=== PATIENT | female | born 1940 | race Caucasian/White ===

== ENCOUNTER → 2017-02-06 | Outpatient (CLI) | payer OTHER, BC ==
[~2017-02-06] MED LIST: ALENDRONATE SOD70 MG PO; CALCIUM 600 +1 EAC1 PO; DULERA 100 MCG/13 GM PO; ETODOLAC 400 M400 MG PO; INDAPAMIDE1.25 MG PO; LEVOTHYROXINE 0.1 MG PO; MIRALAX17 GM PO; OMEPRAZOLE20 M2 PO; OXYBUTYNIN 5 MG5 M2 PO; PROBIOTIC1 EAC1 PO; SENOKOT-S1 TA1 PO; SIMVASTATIN40 MG PO; SINGULAIR 10 MG10 M1 PO; SODIUM CHLORIDE1 G2 PO; SYMBICORT160 MCG/4. INH; TRAMADOL 50 MG50 MG PO; TYLENOL EXTRA500 MG PO; VITAMIN D1000 UNIT PO
== END ==
LOC: HYPER 06:57
DX: S81.801A Unspecified open wound, right lower leg, initial encounter (principal); J45.909 Unspecified asthma, uncomplicated; E78.5 Hyperlipidemia, unspecified; I10 Essential (primary) hypertension; K21.9 Gastro-esophageal reflux disease without esophagitis; B35.1 Tinea unguium; Z85.118 Personal history of other malignant neoplasm of bronchus and lung; Z96.659 Presence of unspecified artificial knee joint; Z87.891 Personal history of nicotine dependence; Z72.89 Other problems related to lifestyle; X58.XXXA Exposure to other specified factors, initial encounter; Y93.89 Activity, other specified; Y92.89 Other specified places as the place of occurrence of the external cause; Y99.8 Other external cause status

== ENCOUNTER → 2017-02-21 | Outpatient (CLI) | payer OTHER, BC | LOC: HYPER 06:41 | DX: S81.811D Laceration without foreign body, right lower leg, subsequent encounter (principal); J45.909 Unspecified asthma, uncomplicated; E78.5 Hyperlipidemia, unspecified; I10 Essential (primary) hypertension; K21.9 Gastro-esophageal reflux disease without esophagitis; Z85.118 Personal history of other malignant neoplasm of bronchus and lung; Z87.891 Personal history of nicotine dependence; Z72.89 Other problems related to lifestyle; Z96.659 Presence of unspecified artificial knee joint; X58.XXXD Exposure to other specified factors, subsequent encounter ==

== ENCOUNTER → 2017-03-07 | Outpatient (CLI) | payer OTHER, BC | LOC: HYPER 06:37 | DX: S81.811D Laceration without foreign body, right lower leg, subsequent encounter (principal); L84 Corns and callosities; I10 Essential (primary) hypertension; E78.5 Hyperlipidemia, unspecified; K21.9 Gastro-esophageal reflux disease without esophagitis; J45.909 Unspecified asthma, uncomplicated; Z85.118 Personal history of other malignant neoplasm of bronchus and lung; Z87.891 Personal history of nicotine dependence; Z72.89 Other problems related to lifestyle; X58.XXXD Exposure to other specified factors, subsequent encounter ==

== ENCOUNTER → 2017-03-28 | Outpatient (CLI) | payer OTHER, BC | LOC: HYPER 06:45 | DX: S81.801D Unspecified open wound, right lower leg, subsequent encounter (principal); J45.909 Unspecified asthma, uncomplicated; E78.5 Hyperlipidemia, unspecified; I10 Essential (primary) hypertension; K21.9 Gastro-esophageal reflux disease without esophagitis; B35.1 Tinea unguium; Z85.118 Personal history of other malignant neoplasm of bronchus and lung; Z96.659 Presence of unspecified artificial knee joint; Z87.891 Personal history of nicotine dependence; Z72.89 Other problems related to lifestyle; X58.XXXD Exposure to other specified factors, subsequent encounter ==

== ENCOUNTER → 2020-11-25 | Outpatient (CLI) | payer OTHER, BC | LOC: HYPER 07:32 | PROVIDERS: ATTEND Emergency Medicine Emergency Medical Services | DX: S41.112A Laceration without foreign body of left upper arm, initial encounter (principal); S81.812A Laceration without foreign body, left lower leg, initial encounter; R60.0 Localized edema; E78.5 Hyperlipidemia, unspecified; E66.9 Obesity, unspecified; E07.89 Other specified disorders of thyroid; I10 Essential (primary) hypertension; K21.9 Gastro-esophageal reflux disease without esophagitis; J45.909 Unspecified asthma, uncomplicated; Z85.118 Personal history of other malignant neoplasm of bronchus and lung; Z96.659 Presence of unspecified artificial knee joint; Z87.891 Personal history of nicotine dependence; Z68.38 Body mass index [BMI] 38.0-38.9, adult; X58.XXXA Exposure to other specified factors, initial encounter; Y93.89 Activity, other specified; Y92.89 Other specified places as the place of occurrence of the external cause; Y99.8 Other external cause status ==

== ENCOUNTER → 2020-12-09 | Outpatient (CLI) | payer OTHER, BC | LOC: HYPER 07:57 | PROVIDERS: ATTEND Emergency Medicine Emergency Medical Services | DX: S81.812D Laceration without foreign body, left lower leg, subsequent encounter (principal); R60.0 Localized edema; L84 Corns and callosities; E78.5 Hyperlipidemia, unspecified; I10 Essential (primary) hypertension; K21.9 Gastro-esophageal reflux disease without esophagitis; J45.909 Unspecified asthma, uncomplicated; E66.9 Obesity, unspecified; Z68.38 Body mass index [BMI] 38.0-38.9, adult; Z85.118 Personal history of other malignant neoplasm of bronchus and lung; Z87.891 Personal history of nicotine dependence; Z79.899 Other long term (current) drug therapy; X58.XXXD Exposure to other specified factors, subsequent encounter ==